=== PATIENT | male | born 1970 | race Caucasian/White ===

== ENCOUNTER 2016-08-06 10:55 | Emergency (ER) | payer SELFPAY ==
[~2016-08-06] VITALS: Ht 175.3 cm; Wt 100.0 kg
[~2016-08-06 10:55] MED LIST: HYDR-3702 PO; SULF1TAB35 PO
[2016-08-06] MEDS ORDERED: LORazepam 2 MG/ML (ATIVAN) 1 ML VIAL IV ONE (11:05)
[2016-08-06] MEDS ORDERED: LORazepam 2 MG/ML (ATIVAN) 1 ML VIAL ONE (11:06)
[2016-08-06] MEDS ORDERED: HYDROmorphone 1 MG/ML (DILAUDID) SYRINGE ONE (11:06)
[2016-08-06] MEDS: HYDROmorphone 1 MG/ML (DILAUDID) SYRINGE IV ONE ×2 (11:12→11:22)
--- NOTE | 2016-08-06 11:12 | NUR ---
Note: Dilaudid 0.5 mg diluted with NS admin through Rt forearm SL site. Pt c/o discomfort at end of admin of the 3 ml solution - site noted to be swollen and tender to light palp. Patient says site constantly stinging now. SL site dc'd.
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
[2016-08-06] MEDS ORDERED: ASPI325T4 PO (11:50)
--- NOTE | 2016-08-06 13:30 | NUR ---
Hospital Pharmacist (Bowen) notified of first SL site having infiltrated - that was noted after Dilaudid had been admin and that 2nd half (of original Dilaudid 1 mg Tubex) was used for admin 0.5 mg Dilaudid in Rt AC site at 1122 hrs.
--- NOTE | 2016-08-06 13:35 | Diagnostic Imaging Report ---
INDICATION: Injury with right chest wall pain. FINDINGS: There is no free air beneath the diaphragm. The right lung revealed no contusion, pneumothorax, or hemothorax. No identifiable or displaced right rib fracture deformity, no bony destruction. IMPRESSION: Negative. Dictated by: Dictated on workstation # [id number]
--- NOTE | 2016-08-06 14:56 | NUR ---
Pt continues to rest quietly on ER cart.
[2016-08-06] MEDS ORDERED: DEXAMETHASONE 4 MG/ML (DECADRON) 5ml VIAL IV ONE (15:20)
[2016-08-06] MEDS ORDERED: KETOROLAC 30 MG/ML (TORADOL) 1 ML VIAL IV ONE (15:20)
[2016-08-06] MEDS: SODIUM CHLORIDE FLUSH 10 ML SYR IV PRN ×2 (15:42→15:45)
[2016-08-06 17:27] VITALS: BP 117/59
== END 2016-08-06 16:02 | disposition home or self-care (01) ==
LOC: EDUNIT# 10:55 → ED 11:19
DX: R07.89 Other chest pain (principal)
CPT/HCPCS: 71101; 93005; 96374; 96375; 99284; J1100; J1170; J1885; J2060; 93010